=== PATIENT | female | born 1990 | race American Indian/Alaskan Native ===

== ENCOUNTER 2017-10-16 23:02 | Emergency (ER) | payer BC, OTHER ==
[2017-10-16] MEDS ORDERED: predniSONE 20 MG Tab PO ONE (23:25)
[2017-10-16] MEDS ORDERED: Famotidine 20 MG Tab PO ONE (23:25)
[2017-10-16] MEDS ORDERED: diphenhydrAMINE 50 MG Cap PO ONE (23:25)
--- NOTE | 2017-10-16 23:32 | EDM.PDOC ---
ED HPI GENERAL MEDICAL PROBLEM - General Chief Complaint: Allergic Reaction Stated Complaint: ALLERIC REACTION [id number] Time Seen by Provider: 10/16/17 23:15 Source of Information: Reports: Patient History Limitations: Reports: No Limitations - History of Present Illness INITIAL COMMENTS - FREE TEXT/NARRATIVE: C/O allergic reaction to something starting this morning prior to going to work , No difficulty breathing, no difficulty swallowing. Denies any change in diet soap or lotions. No exposure to plants. Has same cat for greater than one year. - Related Data Allergies Allergy/AdvReac Type Severity Reaction Status Date / Time No Known Allergies Allergy Verified 10/17/17 21:48 Home Meds: Home Meds diphenhydrAMINE [Benadryl] 50 mg PO Q6HR 10/17/17 [History] predniSONE [Prednisone] 40 mg PO DAILY 10/17/17 [History] Past Medical History HEENT History: Reports: Impaired Vision - Past Surgical History HEENT Surgical History: Reports: Oral Surgery Social & Family History - Tobacco Use Smoking Status *Q: Current Every Day Smoker Years of Tobacco use: 19 Packs/Tins Daily: 0.5 - Caffeine Use Caffeine Use: Reports: Coffee - Recreational Drug Use Recreational Drug Use: No ED ROS ALLERGIC REACTION - Review of Systems Review Of Systems: ROS reveals no pertinent complaints other than HPI. ED EXAM GENERAL NO PERIP PULSE - Physical Exam Exam: See Below Exam Limited By: No Limitations General Appearance: Alert, Mild Distress Eye Exam: Bilateral Eye: EOMI, PERRL Ears: No: Normal External Exam (red) Nose: Normal Inspection Throat/Mouth: Normal Inspection, Normal Lips, Normal Voice Neck: Normal Inspection Respiratory/Chest: No Respiratory Distress, Lungs Clear, Normal Breath Sounds Cardiovascular: Normal Peripheral Pulses, Bradycardia GI/Abdominal: Normal Bowel Sounds, Soft Back Exam: Full Range of Motion Extremities: Normal Range of Motion Neurological: Alert, Oriented, Normal Cognition, Normal Gait, No Motor/Sensory Deficits Psychiatric: Normal Affect, Normal Mood Skin Exam: Warm, Dry, Intact, Rash (Marge macular urticarial rash to extremities and trunk red erythematous to ears forehead and neck. ). No: Normal Color Course - Vital Signs Last Recorded V/S: Last Vital Signs Temp 100.1 F 10/16/17 23:09 Pulse 75 10/16/17 23:09 Resp 18 10/16/17 23:09 BP 109/63 10/16/17 23:09 Pulse Ox 100 10/16/17 23:09 - Orders/Labs/Meds Meds: Medications Discontinued Medications Generic Name Dose Route Start Last Admin Trade Name Lan PRN Reason Stop Dose Admin Diphenhydramine HCl 50 mg 10/16/17 23:25 10/16/17 23:35 Benadryl PO 10/16/17 23:26 50 mg ONETIME ONE Administration Diphenhydramine HCl Confirm 10/16/17 23:34 10/16/17 23:43 Benadryl Administered 10/16/17 23:35 Not Given Dose 50 mg .ROUTE .STK-MED ONE Famotidine 20 mg 10/16/17 23:25 10/16/17 23:36 Pepcid PO 10/16/17 23:26 20 mg ONETIME ONE Administration Prednisone 40 mg 10/16/17 23:25 10/16/17 23:35 Prednisone PO 10/16/17 23:26 40 mg ONETIME ONE Administration Prednisone Confirm 10/16/17 23:34 10/16/17 23:43 Prednisone Administered 10/16/17 23:35 Not Given Dose 40 mg .ROUTE .STK-MED ONE Departure - Departure Time of Disposition: 23:29 Disposition: Home, Self-Care 01 Condition: Good Clinical Impression: Hives of unknown origin - Discharge Information *PRESCRIPTION DRUG MONITORING PROGRAM REVIEWED*: No Instructions: Hives, [id number] Referrals: PCP,None [Primary Care Provider] - Forms: ED Department Discharge Additional Instructions: Benadryl 50mg every 4 hours as needed for rash/itching prednisone 40mg in am, 30mg x 2 days, 20 x 2 1 x 2 days Pepcid or zantac one daily for 5 days follow up if any difficulty breathing or rash worsening
[2017-10-16] MEDS ORDERED: diphenhydrAMINE 50 MG Cap ONE (23:34)
[2017-10-16] MEDS ORDERED: predniSONE 20 MG Tab ONE (23:34)
== END 2017-10-16 23:42 | disposition home or self-care (01) ==
LOC: DL.ED 23:02
DX: L50.9 Urticaria, unspecified (principal); F17.210 Nicotine dependence, cigarettes, uncomplicated
CPT/HCPCS: 99283; A9270; Q0163

== ENCOUNTER 2017-10-17 21:38 | Emergency (ER) | payer OTHER ==
[2017-10-17 23:16] LABS: ANION GAP 13.7; CHLORIDE,CL 106 mmol/L (101-111); SODIUM,NA 139 mmol/L (135-145)
[2017-10-18] MEDS ORDERED: predniSONE 20 MG Tab PO ONE (00:11)
--- NOTE | 2017-10-18 00:21 | EDM.PDOC ---
ED HPI GENERAL MEDICAL PROBLEM - General Chief Complaint: Allergic Reaction Stated Complaint: ALERGIC REACTION [id number] Time Seen by Provider: 10/17/17 23:10 Source of Information: Reports: Patient History Limitations: Reports: No Limitations - History of Present Illness INITIAL COMMENTS - FREE TEXT/NARRATIVE: Pt. seen last piper with c/o of allergic reaction. Undetermined cause. Improved on discharge and this am Noted increasing redness to extremities around 11am while at work, and this piper face swollen and ears hot. . States has continued to take benadryl. Itching improved with Benadryl. No difficulty breathing, no trouble swallowing. No known changes in environment or diet, states eat the same 3 meals for past years. Does not wear makeup. No change in soaps. Only change is removal of few ceiling tiles at work prior to symptoms starting. Denies sx of illness. No change in stress level. Planning trip to [facility] in 6 days. - Related Data Allergies Allergy/AdvReac Type Severity Reaction Status Date / Time No Known Allergies Allergy Verified 10/17/17 21:48 Home Meds: Home Meds diphenhydrAMINE [Benadryl] 50 mg PO Q6HR 10/17/17 [History] predniSONE [Prednisone] 40 mg PO DAILY 10/17/17 [History] Past Medical History HEENT History: Reports: Impaired Vision - Past Surgical History HEENT Surgical History: Reports: Oral Surgery Social & Family History - Tobacco Use Smoking Status *Q: Current Every Day Smoker Years of Tobacco use: 10 Packs/Tins Daily: 0.5 - Caffeine Use Caffeine Use: Reports: Coffee - Recreational Drug Use Recreational Drug Use: No ED ROS ALLERGIC REACTION - Review of Systems Review Of Systems: ROS reveals no pertinent complaints other than HPI. ED EXAM GENERAL NO PERIP PULSE - Physical Exam Exam: See Below Exam Limited By: No Limitations General Appearance: Alert, Mild Distress Eye Exam: Bilateral Eye: EOMI Ears: Hearing Grossly Normal. No: Normal External Exam (red warm) Nose: Normal Inspection Throat/Mouth: Normal Inspection Head: Atraumatic, Normocephalic, Facial Swelling (erythema mild induration at facial lines) Neck: Normal Inspection Respiratory/Chest: No Respiratory Distress, Lungs Clear, Normal Breath Sounds Cardiovascular: Normal Peripheral Pulses, Regular Rate, Rhythm GI/Abdominal: Soft Extremities: Normal Inspection Neurological: Alert, Oriented, Normal Cognition Psychiatric: Normal Affect, Normal Mood Skin Exam: Warm, Dry, Intact, Rash (large patchy red hives to extremities trunk and face. Extremities improved from last piper, face appears redder and more swollen.). No: Normal Color Course - Vital Signs Last Recorded V/S: Last Vital Signs Temp 99.0 F 10/17/17 21:49 Pulse 61 10/17/17 21:49 Resp 18 10/17/17 21:49 BP 111/67 10/17/17 21:49 Pulse Ox 100 10/17/17 21:49 - Orders/Labs/Meds Orders: Active Orders 24 hr Category Date Time Status CULTURE STREP A CONFIRMATION [] Stat Lab 10/17/17 23:23 Results STREP SCRN A RAPID W CULT CONF [] Stat Lab 10/17/17 23:23 Results Labs: Laboratory Tests 10/17/17 10/17/17 10/17/17 Range/Units 22:50 22:50 22:50 WBC 21.4 H (5.0-10.0) 10^3/uL RBC 4.49 (4.2-5.4) 10^6/uL Hgb 14.4 (12.0-16.0) g/dL Hct 42.0 (37.0-47.0) % MCV 93.5 (80-100) fL MCH 32.1 (27.0-34.0) pg MCHC 34.3 (33.0-35.0) g/dL Plt Count 258 (150-450) 10^3/uL Neut % (Auto) 76.6 H (42.2-75.2) % Lymph % (Auto) 17.1 L (20.5-50.1) % [place] % (Auto) 6.1 (2-8) % Eos % (Auto) 0.2 L (1.0-3.0) % Baso % (Auto) 0.0 (0.0-1.0) % Add Manual Diff Yes Neutrophils % (Manual) 83 H (42-75) % Band Neutrophils % 3 % Lymphocytes % (Manual) 11 L (20-50) % Monocytes % (Manual) 3 (2-8) % Sodium 139 (135-145) mmol/L Potassium 3.7 (3.6-5.0) mmol/L Chloride 106 (101-111) mmol/L Carbon Dioxide 23.0 (21.0-31.0) mmol/L Anion Gap 13.7 BUN 12 (7-18) mg/dL Creatinine 0.7 (0.6-1.3) mg/dL Est Cr Clr Drug Dosing 106.70 mL/min Estimated GFR (MDRD) > 60 BUN/Creatinine Ratio 17.14 Glucose 100 (74-105) mg/dL Calcium 9.3 (8.4-10.2) mg/dl Total Bilirubin 0.9 (0.2-1.0) mg/dL AST 25 (10-42) IU/L ALT 20 (10-60) IU/L Alkaline Phosphatase 46 (42-121) IU/L C-Reactive Protein 0.7 (0.0-1.3) mg/dL Total Protein 7.6 (6.7-8.2) g/dl Albumin 4.7 (3.2-5.5) g/dl Globulin 2.9 Albumin/Globulin Ratio 1.62 Meds: Medications Discontinued Medications Generic Name Dose Route Start Last Admin Trade Name Lan PRN Reason Stop Dose Admin Prednisone 20 mg 10/18/17 00:11 10/18/17 00:15 Prednisone PO 10/18/17 00:12 20 mg ONETIME ONE Administration Departure - Departure Time of Disposition: 00:18 Disposition: Home, Self-Care 01 Condition: Fair Clinical Impression: Hives of unknown origin - Discharge Information Instructions: Stinging [place], Hives, [id number] Referrals: PCP,None [Primary Care Provider] - Forms: ED Department Discharge Additional Instructions: Prednisone, taper dose hydroxyzine 25mg one every 6 hours as needed for rash ansd itching OR benadryl 25mg every 4 hours as nweeded for itching Follow up in clinic later week - My Orders Last 24 Hours: My Active Orders 10/17/17 23:23 CULTURE STREP A CONFIRMATION [RM] Stat STREP SCRN A RAPID W CULT CONF [] Stat - Assessment/Plan Last 24 Hours: My Active Orders 10/17/17 23:23 CULTURE STREP A CONFIRMATION [RM] Stat STREP SCRN A RAPID W CULT CONF [RM] Stat
== END 2017-10-18 00:26 | disposition home or self-care (01) ==
LOC: DL.ED 21:38
DX: L50.9 Urticaria, unspecified (principal); F17.210 Nicotine dependence, cigarettes, uncomplicated; Z79.899 Other long term (current) drug therapy
CPT/HCPCS: 36415; 80053; 85025; 86140; 87081; 87430; 99283; A9270